=== PATIENT | female | born 1975 | race Caucasian/White ===

== ENCOUNTER 2022-10-10 20:08 | Emergency (ER) | payer OTHER, SELFPAY ==
[2022-10-10 20:28] VITALS: BP 142/78; PULSE 77; RESP 16; TEMP 36.7; O2SAT 95; BMI 33.3
--- NOTE | 2022-10-10 20:35 | DI.RAD.S_ITS ---
PROCEDURE: XR KNEE LT 3V INDICATIONS: Red, pain, swollen L knee TECHNIQUE: 3 views of the knee were acquired. COMPARISON: None. FINDINGS: Bones: No fractures or dislocations. No suspicious bony lesions. Soft tissues: There is a suspected small joint effusion. No suspicious soft tissue calcifications. IMPRESSION: 1. No fracture or dislocation. 2. Suspected small joint effusion. Dictated by: Jad Venegas M.D. on 10/10/2022 at 21:20 Approved by: Jad Venegas M.D. on 10/10/2022 at 21:20
--- NOTE | 2022-10-10 22:36 | ED_ITS ---
HPI - Extremity Injury (Lower) General Chief Complaint: Extremity Injury, Lower Stated Complaint: L knee pain Time Seen by Provider: 10/10/22 20:37 Source: patient Mode of arrival: Ambulatory History of Present Illness HPI Narrative: 39-year-old female nonsmoker with history of reflex sympathetic dystrophy presents with her in the chief complaint of left knee pain. She states that she has knee pain for quite some time but thinks she tweaked it when jet skiing about 1 week ago and seems to be worse. She had presented to an outside facility and was sent here due to their concern about possible septic arthritis. The patient does have pain but denies any redness or warmth. She is had no fever or chills. She states she has pain with ambulation and improvement with rest. She is otherwise well and free of complaint. Related Data Allergies Allergy/AdvReac Type Severity Reaction Status Date / Time No Known Drug Allergies Allergy Verified 10/10/22 20:35 Review of Systems Review of Systems Narrative: GENERAL: Denies chills, fatigue, malaise, fever, sweats. HEENT: Denies sinus pain, ear pain, sore throat, difficulty swallowing, dizziness. RESPIRATORY: Denies dyspnea, cough, wheezing, hemoptysis, sputum. CARDIOVASCULAR: Denies chest pain, palpitations, orthopnea, edema, GASTROINTESTINAL: Denies nausea, vomiting, abdominal pain, diarrhea, constipation, melena. : Denies dysuria, frequency, incontinence, hematuria, urinary retention. MUSCULOSKELETAL: See HPI n SKIN: Denies rash, skin lesions, or other NEUROLOGIC: Denies weakness, headache, numbness, change in speech, confusion, seizures, incoordination. PSYCHIATRIC: No concerning psychosocial issues. 12 point review of systems is negative except for those stated above Patient History Social History Smoking Status: Never smoker Smoking Status: Never smoker Substance Use Type: does not use Exam Narrative Exam Narrative: GENERAL: [47] year old patient appears stated age. Well-developed patient, in mild distress. HEAD: Atraumatic. Normocephalic. EYES: Pupils equal round and reactive. Extraocular motions intact. No scleral icterus. No injection or drainage. ENT: Nose without bleeding, purulent drainage. Throat without erythema, tonsillar hypertrophy or exudate. Airway patent. NECK: Trachea midline. Non tender CARDIOVASCULAR: Regular rate and rhythm without murmurs, gallops, or rubs. RESPIRATORY: Clear to auscultation. Breath sounds equal bilaterally. No wheezes, rales, or rhonchi. GASTROINTESTINAL: Abdomen soft, non-tender, nondistended. EXTREMITIES: Left knee with full but painful range of motion, no effusion, erythema or warmth, no obvious bony tenderness, no obvious ligamentous laxity. BACK: Nontender without deformity or crepitance. No flank tenderness. NEURO: AOx3. SKIN: Fine blanching rash overlying inferior pole of patella and some down over proximal romero. No drainage Initial Vital Signs Initial Vital Signs: Vital Signs Temperature 98.1 F 10/10/22 20:28 Pulse Rate 77 10/10/22 20:28 Respiratory Rate 16 10/10/22 20:28 Blood Pressure 142/78 H 10/10/22 20:28 Pulse Oximetry 95 10/10/22 20:28 Oxygen Delivery Method Room Air 10/10/22 20:28 Course Orders Ordered: ED Orders 10/10/22 20:35 XR knee LT 3V Stat 10/10/22 23:08 CBC Auto Diff [Complete Blood Count AUTO DIFF] Stat CMP [Comprehensive Metabolic Panel] Stat CRP [C-Reactive Protein Quant] Stat ESR [Erythrocyte Sedimentation Rate] Stat Discontinued Medications Hydrocodone Bitart/Acetaminophen (Hydrocodone/Acet 5/325 Tablet) 1 tab PO NOW ONE Stop: 10/10/22 22:47 Last Admin: 10/10/22 23:04 Dose: 1 tab Documented By: BAILEE Hydrocodone Bitart/Acetaminophen (Hydrocodone/Acet 5/325 Prepack) 1 bottle MISC SEEINSTR ONE Stop: 10/10/22 23:35 Ondansetron HCl (Ondansetron 4 Mg Odt Prepack) 1 bottle MISC SEEINSTR ONE Stop: 10/10/22 22:47 Last Admin: 10/10/22 23:04 Dose: 1 bottle Documented By: BAILEE Ondansetron HCl (Ondansetron 4 Mg Odt Prepack) 1 bottle MISC SEEINSTR ONE Stop: 10/10/22 23:35 Vital Signs Vital signs: Vital Signs - 8 hr 10/10/22 20:28 Temperature 98.1 F Pulse Rate 77 Respiratory Rate 16 Blood Pressure 142/78 H Pulse Oximetry 95 Oxygen Delivery Method Room Air MDM - Extremity Injury (Lower) Lab Data 10/10/22 23:08 10/10/22 23:08 Labs: Lab Results 10/10/22 10/10/22 Range/Units 23:08 23:08 WBC 7.7 (4.5-11.0) X10^3/uL RBC 4.32 (4.0-5.2) X10^6/uL Hgb 13.7 (12.0-16.0) g/dL Hct 39.5 (36-46) % MCV 91.4 (80-100) fL MCH 31.7 (26-34) PG MCHC 34.7 (30-36) % RDW 13.8 (11.6-14.8) % Plt Count 314 (150-400) X10^3/uL Neut % (Auto) 57.2 (50-75) % Lymph % (Auto) 31.5 (25-40) % [place] % (Auto) 7.5 (3-14) % Eos % (Auto) 2.5 (2-4) % Baso % (Auto) 1.3 (0-2) % Neut # (Auto) 4400 (8541-8664) /uL Lymph # (Auto) 2400 (1142-9879) /uL [place] # (Auto) 600 (0-900) /uL Eos # (Auto) 200 (0-450) /uL Baso # (Auto) 100 (0-100) /uL ESR 24 H (0-20) MM/HR Sodium 138 (137-145) mmol/L Potassium 4.0 (3.4-5.1) mmol/L Chloride 103 (98-107) mmol/L Carbon Dioxide 29 (22-32) mmol/L BUN 20 H (7-17) mg/dL Creatinine 1.11 H (0.52-1.04) mg/dL Estimated GFR > 60 (>60) mL/min BUN/Creatinine Ratio 18.0 (6-22) Glucose 107 H (70-100) mg/dL Calcium 8.8 (8.4-10.2) mg/dL Total Bilirubin 0.4 (0.2-1.3) mg/dL AST 23 (14-36) IU/L ALT 21 (<35) IU/L Alkaline Phosphatase 65 (38-126) U/L C-Reactive Protein < 0.5 (<1.0) mg/dL Total Protein 7.3 (6.3-8.2) g/dL Albumin 4.1 (3.5-5.0) g/dL Globulin 3.2 (1.7-4.1) g/dL Albumin/Globulin Ratio 1.3 (1.0-2.8) MDM Narrative Medical decision making narrative: [47] year old patient presents with left knee pain after injury Multiple etiologies for patient's symptoms considered including, but not limited to: [Fracture versus dislocation versus sprain versus gout versus septic arthritis versus recurrence of RSD versus other] Primary Historian: patient Labs reviewed and interpreted by myself: No significant abnormalities, no leukocytosis, no elevation of inflammatory markers Imaging reviewed: X-ray without fracture or dislocation Patient's symptoms improved over duration of stay with above-stated therapies. Multiple diagnoses considered as noted above. Imaging reassuring and no evidence of fracture or dislocation. No ligamentous laxity, fusion on exam to suggest large soft tissue injury. No redness, warmth or swelling and preserved range of motion would suggest against the likelihood of septic arthritis. Patient has had chronic pain in his knee and has a recent injury, sprain or strain is most likely, early RSD is considered Findings and discharge diagnosis discussed with patient/family followed by verbalization of understanding Return precautions discussed with patient/family whom verbalize understanding of diagnosis and plan Discharge Plan Departure Patient Disposition: Home Clinical Impression: Acute pain of left knee Instructions: DI for Knee Pain Activity Restrictions/Additional Instructions: *You have been diagnosed with [left knee pain. As we discussed your history and physical exam are reassuring and there is no evidence of fracture or dislocation on imaging.] *What to do: *Please continue to take your regular medications as directed. *Please follow up with your primary care provider in 2-3 days, call for an appointment. Let them know you were seen in the Emergency Department and that we ask that you be seen in follow up. We will electronically transmit a record of today's note if your PCP is in our system *If you do not have a primary care provider please contact the [facility] Resource line at [phone]. They will ask some questions about your medical h istory and help get you set up with a doctor in the community. *Return to Emergency Department if you should have any new, worsening or concerning symptoms, such as [fever greater than 101 F, shaking chills, worsening pain, persistent vomiting or other bothersome symptoms] Referrals: Mariposa Victoria MD [Primary Care Provider] - Stand Alone Forms: Patient Portal/API
[2022-10-10] MEDS: ONDANSETRON 4 MG ODT PREPACK 1 BOTTLE MISC (23:04)
[2022-10-10] MEDS: HYDROCODONE/ACET 5/325 TABLET 1 TAB PO (23:04)
[2022-10-10 23:16] LABS: Add Manual Diff / Slide Review NO; Basophils Absolute Auto 100 /uL (0-100); Basophils Percent Auto 1.3 % (0-2); Eosinophils Absolute Auto 200 /uL (0-450); Eosinophils Percent Auto 2.5 % (2-4); Hematocrit 39.5 % (36-46); Hemoglobin 13.7 g/dL (12.0-16.0); Lymphocytes Absolute Auto 2400 /uL (1100-4500); Lymphocytes Percent Auto 31.5 % (25-40); Mean Corpuscular HGB Conc 34.7 % (30-36); Mean Corpuscular Hemoglobin 31.7 PG (26-34); Mean Corpuscular Volume 91.4 fL (80-100); Monocytes Absolute Auto 600 /uL (0-900); Monocytes Percent Auto 7.5 % (3-14); Neutrophils Absolute Auto 4400 /uL (1500-7000); Neutrophils Percent Auto 57.2 % (50-75); Platelet Count 314 X10^3/uL (150-400); Red Blood Cell Count 4.32 X10^6/uL (4.0-5.2); Red Cell Distribution Width 13.8 % (11.6-14.8); White Blood Cell Count 7.7 X10^3/uL (4.5-11.0)
[2022-10-10 23:28] LABS: Alanine Aminotransferase 21 IU/L (<35); Albumin 4.1 g/dL (3.5-5.0); Albumin Globulin Ratio 1.3 (1.0-2.8); Alkaline Phosphatase 65 U/L (38-126); Aspartate Aminotransferase 23 IU/L (14-36); Bilirubin Total 0.4 mg/dL (0.2-1.3); Blood Urea Nitrogen 20 mg/dL (7-17); C-Reactive Protein Quant < 0.5 mg/dL (<1.0); Calcium 8.8 mg/dL (8.4-10.2); Carbon Dioxide 29 mmol/L (22-32); Chloride 103 mmol/L (98-107); Estimated Glomerular Filt Rate > 60 mL/min (>60); Globulin 3.2 g/dL (1.7-4.1); Glucose 107 mg/dL (70-100); HEMOLYSIS 29 (0-50); Sodium 138 mmol/L (137-145); Total Protein 7.3 g/dL (6.3-8.2)
[2022-10-10 23:34] LABS: Erythrocyte Sedimentation Rate 24 MM/HR (0-20)
[2022-10-10] MEDS: HYDROCODONE/ACET 5/325 PREPACK 1 BOTTLE MISC (23:52)
== END 2022-10-10 23:55 | disposition home or self-care (01) ==
PROVIDERS: Emergency Provider Emergency Medicine; PCP Family Medicine
DX: M25.562 Pain in left knee (principal)
CPT/HCPCS: 36415; 73562; 80053; 85025; 85651; 86140; 99283; 99284